=== PATIENT | male | born 1960 | race Caucasian/White ===

== ENCOUNTER 2023-06-22 02:43 | Emergency (ER) | payer BC, SELFPAY ==
[2023-06-22] VITALS (7 sets, daily range): BP systolic 132–159; BP diastolic 79–104; PULSE 69–106; RESP 16–18; TEMP 35.7; O2SAT 95–97; BMI 26.5
--- NOTE | 2023-06-22 02:52 | CTR_ITS ---
PROCEDURE INFORMATION: Exam: CT Head Without Contrast Exam date and time: 06/22/2023 3:06 AM Age: 63 years old Clinical indication: Syncope and collapse; Patient HX: EMS arrival for syncopal episode TECHNIQUE: Imaging protocol: Computed tomography of the head without contrast. Radiation optimization: All CT scans at this facility use at least one of these dose optimization techniques: automated exposure control; mA and/or kV adjustment per patient size (includes targeted exams where dose is matched to clinical indication); or iterative reconstruction. COMPARISON: No relevant prior studies available. RADIATION DOSE METRICS: Total DLP (mGy-cm): 1026.28 FINDINGS: Brain: No acute intracranial hemorrhage or mass effect. No definite acute infarct by CT. MRI would be more sensitive/specific for detection, as clinically directed. Cerebral ventricles: Ventricle size is normal for age. Paranasal sinuses: Included paranasal sinuses are essentially clear. Mastoid air cells: No significant acute finding. Bones/joints: No definite acute skull fracture. Soft tissues: No significant acute finding. Vasculature: Vascular calcifications in the internal carotid arteries. CT/CT head wo con* [id number] IMPRESSION: 1. No acute intracranial hemorrhage or mass effect. 2. No definite acute infarct by CT, see above. 3. Other findings discussed above.
--- NOTE | 2023-06-22 02:52 | XRR_ITS ---
PROCEDURE INFORMATION: Exam: XR Chest Exam date and time: 06/22/2023 2:54 AM Age: 63 years old Clinical indication: Other: Syncope; Patient HX: EMS arrival for syncopal episode TECHNIQUE: Imaging protocol: Radiologic exam of the chest. Views: 1 view. COMPARISON: No relevant prior studies available. FINDINGS: Lungs: No CHF/pulmonary edema. Poor inspiration somewhat limits evaluation, especially of the lung bases. Visible lungs appear essentially clear. Pleural spaces: No visible pneumothorax. No definite pleural fluid. Heart/Mediastinum: Heart size is within normal limits. Bones/joints: No significant acute finding. XR/XR chest 1V portable [id number] IMPRESSION: 1. No definite CHF or pneumonia. 2. Other findings discussed above.
[2023-06-22 03:06] LABS: Basophils % 0.6 %; Eosinophils # 0.1 10^3/uL (0.0-0.8); Lymphocytes # 2.5 10^3/uL (0.8-4.8); Lymphocytes % 37.5 %; Mean Corpuscular HGB Conc 34.3 g/dL (30-55); Mean Corpuscular Hemoglobin 32.7 pg (27-33); Mean Corpuscular Volume 95.5 fl (82-101); Mean Platelet Volume 9.5 fL (7.4-10.4); Monocytes # 0.3 10^3/uL (0.2-0.9); Monocytes % 4.7 %; Neutrophils # 3.58 10^3/uL (1.8-7.7); Neutrophils % 54.9 %; Nucleated Red Blood Cells % 0 %; Platelet Count 223 10^3/cmm (157-399); Red Blood Count 4.19 10^6/uL (3.85-5.65); Red Cell Distribution Width 12.9 % (12.1-15.1); White Blood Count 6.53 10^3/uL (3.29-11.43)
--- NOTE | 2023-06-22 03:10 | ED_ITS ---
HPI - Fall 2 General: Chief Complaint: Fall Stated Complaint: FALL Time Seen by Provider: 06/22/23 02:52 History of Present Illness: 63-year-old male gentleman who by report his head 5 beers and 2 shots of alcohol yesterday, stopping his consumption around 5 PM. He had gone to bed feeling well he says. He at some point got up this morning to use the restroom, and fell on the floor. He does not remember this event. When asked what he remembers next, he remembers people in my camper . He is describing the EMS crew that arrived following his calling 911. He is currently asymptomatic. His believes he is mildly confused. He complains of no pain. Associated symptoms-after fall: Denies abdominal pain, chest pain, confusion, headache(s) or neck pain Review of Systems 2 Const: Denies: fever(s) Eyes: Denies: change in vision ENMT: Denies: throat pain Card: Denies: chest pain or palpitations Resp: Denies: dyspnea, productive cough or non-productive cough GI: Denies: abdominal pain, vomiting or diarrhea Musc: Denies: neck pain or back pain Skin/Breast: Denies: rash Neuro: Denies: headache(s), numbness in extremities, weakness in extremities, dizziness, confusion, Slurred speech present or seizure-like activity Physical Exam 2 Const: COMMON NORMALS: no acute distress and alert GENERAL APPEARANCE: c ooperative; not ill appearing and not frail appearing ORIENTATION/CONSCIOUSNESS: Yes oriented to person and Yes oriented to place; not oriented to time HENMT: COMMON NORMALS: normocephalic, atraumatic and Normal external nose present HEAD & SCALP: normocephalic and atraumatic FACE & SINUS: normal facial exam and face symmetric NOSE: Normal external nose present Eye: COMMON NORMALS: Equal, round and reactive pupils present and EOMs intact bilaterally PUPIL: Yes Equal, round and reactive pupils present Neck/C-Spine: GENERAL: Yes trachea midline Chest: CHEST: Yes Symmetrical chest wall rise Resp: COMMON NORMALS: normal respiratory effort, No retractions, No use of accessory muscles and clear to auscultation bilaterally AUSCULTATION: clear to auscultation bilaterally Cardio: COMMON NORMALS: regular rate and regular rhythm RATE: regular rate RHYTHM: regular rhythm GI: COMMON NORMALS: Normal to inspection, nondistended, normoactive bowel sounds present Extremity: COMMON NORMALS: no pedal edema Neuro: COMMON NORMALS: CN's II-XII intact bilaterally and moves all extremities SENSORIUM/ORIENTATION: Yes alert, Yes oriented to person, Yes oriented to place and No oriented to time CRANIAL NERVES: Yes CN normal except as noted COORDINATION/BALANCE: [id number] test normal and gsep-bi-soeq test normal SPEECH: speech normal SENSORY EXAM: Yes extremities (intact) MOTOR EXAM: Pronator motor function not present and no tremor noted COORDINATION: oyhklw-du-[id number] test normal and lukc-yv-rucx test normal Psych: COMMON NORMALS: speech normal SPEECH: Yes normal speech Skin: COMMON NORMALS: no rashes or lesions noted GENERAL SKIN EXAM: no rashes or lesions noted Course 2 Vital Signs: Vital signs: Vital Signs Temperature 96.3 F L 06/22/23 02:44 Pulse Rate 106 H 06/22/23 04:54 Respiratory Rate 16 06/22/23 04:54 Blood Pressure 142/79 06/22/23 04:54 Pulse Oximetry 95 06/22/23 04:54 Oxygen Delivery Me thod Room Air 06/22/23 04:54 MDM - Fall Medical Decision Making This patient either fell or had a syncopal episode in his camper. By history, it is not clear which 1 occurred. He is awake and appropriate here. He is disoriented only to time. CBC is normal. Other laboratories pending. The patient still has an alcohol level of 90. Other laboratory is not remarkable. Head CT is nonacute. Chest x-ray is nonacute as well. He has an unsteady gait with walking in the emergency department. He will get thiamine IV, fluid bolus, check orthostatics, and repeat walking. He has no focal neurological deficits otherwise. Second ambulation trial is improved from first. Prior to fluid bolus, orthostatics showed an increase in heart rate from lying and sitting to standing ranging from 48-105. Blood pressure did not change. With improvement in gait slowly, no other focal neurologic symptoms, he will be allowed discharge. Close outpatient follow-up. Return for any new or worsening symptoms. Lab Data 06/22/23 03:00 06/22/23 03:43 Radiology Impressions Chest X-Ray 06/22/23 02:52 IMPRESSION: 1. No definite CHF or pneumonia. 2. Other findings discussed above. Head CT 06/22/23 02:52 IMPRESSION: 1. No acute intracranial hemorrhage or mass effect. 2. No definite acute infarct by CT, see above. 3. Other findings discussed above. Laboratory Results WBC 6.53 10^3/uL (3.29-11.43) 06/22/23 03:00 RBC 4.19 10^6/uL (3.85-5.65) 06/22/23 03:00 Hgb 13.70 g/dL (11.27-16.99) 06/22/23 03:00 Hct 40.0 % (37-53) 06/22/23 03:00 MCV 95.5 fl (82-101) 06/22/23 03:00 MCH 32.7 pg (27-33) 06/22/23 03:00 MCHC 34.3 g/dL (30-55) 06/22/23 03:00 RDW 12.9 % (12.1-15.1) 06/22/23 03:00 Plt Count 223 10^3/cmm (157-399) 06/22/23 03:00 MPV 9.5 fL (7.4-10.4) 06/22/23 03:00 Neut % (Auto) 54.9 % 06/22/23 03:00 Lymph % (Auto) 37.5 % 06/22/23 03:00 [place] % (Auto) 4.7 % 06/22/23 03:00 Eos % (Auto) 2.0 % 06/22/23 03:00 Baso % (Auto) 0.6 % 06/22/23 03:00 Neut # (Auto) 3.58 10^3/uL (1.8-7.7) 06/22/23 03:00 Lymph # (Auto) 2.5 10^3/uL (0.8-4.8) 06/22/23 03:00 [place] # (Auto) 0.3 10^3/uL (0.2-0.9) 06/22/23 03:00 Eos # (Auto) 0.1 10^3/uL (0.0-0.8) 06/22/23 03:00 Baso # (Auto) 0.0 10^3/uL (0.0-0.1) 06/22/23 03:00 Nucleated RBC % (auto) 0 % 06/22/23 03:00 Nucleated RBCs # 0.0 /100WBC 06/22/23 03:00 PT 13.20 SECONDS (12.1-14.9) 06/22/23 03:43 INR 0.97 (0.8-1.2) 06/22/23 03:43 APTT 26.2 SECONDS (23.9-36.7) 06/22/23 03:43 Sodium 140 mmol/L (136-145) 06/22/23 03:43 Potassium 4.1 mmol/L (3.5-5.1) 06/22/23 03:43 Chloride 104 mmol/L (98-107) 06/22/23 03:43 Carbon Dioxide 25 mmol/L (22-29) 06/22/23 03:43 Anion Gap 15.1 (5-19) 06/22/23 03:43 BUN 7 mg/dL (8-23) L 06/22/23 03:43 Creatinine 0.8 mg/dL (0.7-1.2) 06/22/23 03:43 GFR Calculation 97.6 mL/min (90-130) 06/22/23 03:43 Glucose 104 mg/dL (65-115) 06/22/23 03:43 Calculated Osmolality 288 mOsm/kg (285-295) 06/22/23 03:43 Lactic Acid 2.2 mmol/L (0.5-2.2) 06/22/23 03:43 Calcium 9.0 mg/dL (8.5-10.5) 06/22/23 03:43 Total Bilirubin 0.3 mg/dL (0.15-1.2) 06/22/23 03:43 AST 29 U/L (0-40) 06/22/23 03:43 ALT 29 U/L (0-41) 06/22/23 03:43 Alkaline Phosphatase 112 U/L (40-130) 06/22/23 03:43 Creatine Kinase 191 U/L (39-308) 06/22/23 03:43 C-Reactive Protein 4.2 mg/L (0.0-4.9) 06/22/23 03:43 Total Protein 6.9 g/dL (6.6-8.7) 06/22/23 03:43 Albumin 4.3 g/dL (3.5-5.2) 06/22/23 03:43 Globulin 2.6 g/dL (1.3-4.6) 06/22/23 03:43 Urine Color Yellow (Yellow) 06/22/23 03:53 Urine Appearance Clear (CLEAR) 06/22/23 03:53 Urine pH 5 (5-7) 06/22/23 03:53 Ur Specific [place] 1.010 (1.005-1.030) 06/22/23 03:53 Urine Protein Neg (Negative) 06/22/23 03:53 Urine Glucose (UA) Norm (Normal) 06/22/23 03:53 Urine Ketones Negative (Negative) 06/22/23 03:53 Urine Blood Neg (Negative) 06/22/23 03:53 Urine Nitrate Negative (Negative) 06/22/23 03:53 Urine Bilirubin Neg (Negative) 06/22/23 03:53 Urine Urobilinogen Neg mg/dL (Negative) 06/22/23 03:53 Ur Leukocyte Esterase Negative (Negative) 06/22/23 03:53 Urine Opiates Screen Negative ng/mL (Negative) 06/22/23 03:53 Ur Barbiturates Screen Negative ng/mL (Negative) 06/22/23 03:53 Ur Phencyclidine Scrn Negative ng/mL (Negative) 06/22/23 03:53 Ur Amphetamines Screen Negative ng/mL (Negative) 06/22/23 03:53 U Benzodiazepines Scrn Negative ng/mL (Negative) 06/22/23 03:53 Urine Cocaine Screen Negative ng/mL (Negative) 06/22/23 03:53 U Marijuana (THC) Screen Negative ng/mL (Negative) 06/22/23 03:53 Ethyl Alcohol 90 mg/dL (0-10) H 06/22/23 03:43 All radiology interpretation(s) finalized by discharge Discharge Plan Discharge Patient Disposition: Home Clinical Impression: Syncope, Alcohol intoxication Condition: Stable Discharge Orders: Discharge ED (Routine); Ordered 06/22/23 Ordered By: Denys Morales Patient Instructions: Syncope (ED), Alcohol Intoxication (ED), Opioid Safety, Pain Management Activity Restrictions/Additional Instructions: Return for any new or worsening neurological symptoms such as trouble with speech or language, worsening weakness, particularly to 1 side, other concerning symptoms. Hydrate. Do not drive a car, operate machinery until cleared by your doctor. Coding Level of Care Code ED Marketing Support Assistant for Teresa Marroquin
--- NOTE | 2023-06-22 03:34 | ECG_ITS ---
[facility] Test Date: 2023-06-22 Pat Name: Tad Goldsmith Department: Room: Gender: Male Clinic Assistant: : [id number] Requested By: Denys Segura Order Number: [id number] Alireza MD: Herbert Parra M.D. Measurements Intervals Gordon Rate: 77 P: 33 MD: 200 QRS: -52 QRSD: 122 T: 31 QT: 387 QTc: 438 Interpretive Statements SINUS RHYTHM WITH SINUS ARRHYTHMIA LEFT ANTERIOR FASCICULAR BLOCK [QRS AXIS <= -45, QR IN I, RS IN II] No previous ECG available for comparison Electronically Signed On 06-22-2023 15:41:15 CDT by Herbert Parra M.D. [email or web address]
[2023-06-22 04:00] LABS: Add Urine Microscopic? NO; Charge for UA Resulting for Rev
[2023-06-22 04:01] LABS: INR 0.97 (0.8-1.2)
[2023-06-22 04:02] LABS: Partial Thromboplastin Time 26.2 SECONDS (23.9-36.7)
[2023-06-22 04:03] LABS: Bilirubin Urine Neg (Negative); Blood Urine Neg (Negative); Glucose Urine UA Norm (Normal); Ketones Urine Negative (Negative); Leukocyte Esterase Urine Negative (Negative); Nitrate Urine Negative (Negative); Protein Urine Neg (Negative); Urine Appearance Clear (CLEAR); Urine Color Yellow (Yellow); Urobilinogen Urine Neg (Negative); pH Urine 5 (5-7)
[2023-06-22 04:09] LABS: Lactic Sepsis W/Reflex 2.2 mmol/L (0.5-2.2)
[2023-06-22 04:10] LABS: Alanine Aminotransferase 29 U/L (0-41); Albumin Level 4.3 g/dL (3.5-5.2); Alcohol Level 90 mg/dL (0-10); Alkaline Phosphatase 112 U/L (40-130); Anion Gap 15.1 (5-19); Aspartate Amino Transferase 29 U/L (0-40); Blood Urea Nitrogen 7 mg/dL (8-23); C Reactive Protein 4.2 mg/L (0.0-4.9); Carbon Dioxide 25 mmol/L (22-29); Chloride 104 mmol/L (98-107); Creatine Phosphokinase 191 U/L (39-308); Creatinine Clr Calc Pharmacy 103.4233; Globulin 2.6 g/dL (1.3-4.6); Glomerular Filtration Rate 97.6 mL/min (90-130); Glucose 104 mg/dL (65-115); Osmolality Calculated 288 mOsm/kg (285-295); Potassium 4.1 mmol/L (3.5-5.1); Sodium 140 mmol/L (136-145); Total Bilirubin 0.3 mg/dL (0.15-1.2); Total Protein 6.9 g/dL (6.6-8.7)
[2023-06-22 04:13] LABS: Amphetamines Screen Urine Negative (Negative); Barbiturates Screen Urine Negative (Negative); Benzodiazepines Screen Urine Negative (Negative); Cocaine Screen Urine Negative (Negative); Opiate Screen Urine Negative (Negative); PCP Screen Urine Negative (Negative); THC Screen Urine Negative (Negative)
[2023-06-22] MEDS: sodium chloride 0.9% 1,000 ML 999 ML IV (04:48)
[2023-06-22 05:34] LABS: Reflex Lactate Order REFLEX LACTIC ORDERD
== END 2023-06-22 06:03 | disposition home or self-care (01) ==
PROVIDERS: Emergency Provider Emergency Medicine
DX: R55 Syncope and collapse (principal); F10.129 Alcohol abuse with intoxication, unspecified; Y90.4 Blood alcohol level of 80-99 mg/100 ml
CPT/HCPCS: 36415; 70450; 71045; 80053; 80306; 80307; 81003; 82550; 83605; 85025; 85610; 85730; 86140; 93005; 96361; 96374; 99285; J3411; J7030